=== PATIENT | female | born 1990 | race African-American/Black ===

== ENCOUNTER 2019-06-26 07:20 | Observation (INO) | payer OTHER ==
[2019-06-30 13:15] LABS: ANION GAP 15.4 (8-16); CARBON DIOXIDE 22.6 mmol/L (21-32)
[2019-06-30 13:16] LABS: ALBUMIN 2.4 g/dL (3.4-5.0); CREATININE 0.5 mg/dL (0.6-1.3); TOTAL BILIRUBIN 0.3 mg/dL (0.0-1.0)
[2019-07-04 20:14] LABS: HEMATOCRIT 32.2 % (36-48); HEMOGLOBIN 10.9 g/dL (12.0-16.0); MEAN CORPUSCULAR VOLUME 92.9 fL (80-94); RED BLOOD CELL COUNT(AUTO) 3.47 MIL/uL (4.20-5.40); WHITE BLOOD COUNT (AUTO) 10.9 K/uL (4.8-10.8)
[2019-07-04 20:15] LABS: BASOPHILS % (AUTO) 0.6 % (0.0-2.0); EOSINOPHILS # (AUTO) 0.2 K/uL (0-0.4); EOSINOPHILS % (AUTO) 2.2 % (0.0-4.0); LYMPHOCYTES # (AUTO) 1.5 K/uL (2.5-16.5); LYMPHOCYTES % (AUTO) 13.9 % (20.5-51.1); MEAN CORPUSCULAR HEMOGLOBIN 31 pg (27-31); MEAN CORPUSCULAR HGB CONC 34 g/dL (33-37); MONOCYTES # (AUTO) 0.7 K/uL (0.8-1.0); MONOCYTES % (AUTO) 6.1 % (1.7-9.3); NEUTROPHILS # (AUTO) 8.4 K/uL (1.8-7.7); NEUTROPHILS % (AUTO) 77.2 % (42.2-75.2); PLATELET COUNT (AUTO) 285 K/uL (140-450); RED CELL DISTRIBUTION WIDTH 13.2 % (11.6-13.7)
[2019-07-04 20:16] LABS: BASOPHILS # (AUTO) 0.1 K/uL (0.00-0.22)
== END 2019-06-26 11:15 | disposition home or self-care (01) ==
LOC: MLD 07:20
PROVIDERS: ADMIT Obstetrics & Gynecology; ATTEND Obstetrics & Gynecology
DX: O99.89 Other specified diseases and conditions complicating pregnancy, childbirth and the puerperium (principal); O99.52 Diseases of the respiratory system complicating childbirth; R05 Cough; R51 Headache; Z3A.28 28 weeks gestation of pregnancy
CPT/HCPCS: 36415; 80053; 85025; 87081; 87804; G0378

== ENCOUNTER 2019-08-01 14:14 | Inpatient (IN) | payer OTHER ==
[~2019-08-01] VITALS: Ht 175.3 cm; Wt 75.3 kg
[2019-08-01] MEDS ORDERED: PREN-380 PO (14:42)
[2019-08-01] MEDS ORDERED: LACTATED RINGERS 1,000 ML IV SCH (14:45)
[2019-08-01] MEDS ORDERED: INFLUENZA VACCINE QUAD 0.5 ML SYR IMVAC PRN (14:55)
[2019-08-01 14:58] VITALS: BP 115/81
[2019-08-01 15:40] LABS: BASOPHILS % (AUTO) 0.3 % (0.0-2.0); EOSINOPHILS % (AUTO) 0.6 % (0.0-4.0); HEMATOCRIT 33.2 % (36-48); LYMPHOCYTES # (AUTO) 1.6 K/uL (2.5-16.5); LYMPHOCYTES % (AUTO) 22.8 % (20.5-51.1); MEAN CORPUSCULAR HEMOGLOBIN 30 pg (27-31); MEAN CORPUSCULAR HGB CONC 33 g/dL (33-37); MEAN CORPUSCULAR VOLUME 91.1 fL (80-94); MONOCYTES # (AUTO) 0.5 K/uL (0.8-1.0); MONOCYTES % (AUTO) 6.5 % (1.7-9.3); NEUTROPHILS # (AUTO) 4.8 K/uL (1.8-7.7); NEUTROPHILS % (AUTO) 69.8 % (42.2-75.2); PLATELET COUNT (AUTO) 304 K/uL (140-450); RED BLOOD CELL COUNT(AUTO) 3.64 MIL/uL (4.20-5.40); RED CELL DISTRIBUTION WIDTH 13.9 % (11.6-13.7); WHITE BLOOD COUNT (AUTO) 6.9 K/uL (4.8-10.8)
[2019-08-01 16:12] LABS: ANION GAP 16.5 (8-16); CARBON DIOXIDE 21.1 mmol/L (21-32); CREATININE 0.7 mg/dL (0.6-1.3); POTASSIUM 3.6 mmol/L (3.5-5.1)
[2019-08-01 16:26] LABS: ALBUMIN 2.5 g/dL (3.4-5.0); TOTAL BILIRUBIN 0.5 mg/dL (0.0-1.0)
[2019-08-01 16:50] LABS: APPEARANCE,URINE SL CLOUDY (CLEAR); BILIRUBIN,URINE 2+ (NEGATIVE); BLOOD, URINE NEGATIVE (NEGATIVE); COLOR,URINE DARK YELLOW (YELLOW); LEUKOCYTE ESTERASE ,URINE TRACE (NEGATIVE); NITRITE, URINE NEGATIVE (NEGATIVE); UGLUCOSE NEGATIVE (NEGATIVE)
[2019-08-01 17:07] LABS: RBC,URINE 0-5 /HPF (0-5)
== END 2019-08-01 21:35 | disposition home or self-care (01) | DRG 566 ==
LOC: MLD 14:14 → OBSVTOIN 14:48
PROVIDERS: ADMIT Obstetrics & Gynecology; ATTEND Obstetrics & Gynecology
DX: O23.43 Unspecified infection of urinary tract in pregnancy, third trimester (principal); O60.03 Preterm labor without delivery, third trimester; Z3A.34 34 weeks gestation of pregnancy; Z91.018 Allergy to other foods
CPT/HCPCS: 36415; 80053; 81001; 85025; 87086; 87804; G0378; J7120

== ENCOUNTER 2019-08-25 05:19 | Inpatient (IN) | payer OTHER ==
[~2019-08-25] VITALS: Ht 175.3 cm; Wt 78.9 kg
[~2019-08-25 05:19] MED LIST: PREN-380 PO
[2019-08-25] MEDS ORDERED: AMPICILLIN 2,000 MG in NACL 0.9% MINI-BAG PLUS 100 ML IV SCH (05:45)
[2019-08-25] MEDS ORDERED: fentaNYL 0.05 MG/ML VIAL IVP ONE (05:50)
[2019-08-25] MEDS: LACTATED RINGERS 1,000 ML IV SCH ×2 (06:12→09:38)
[2019-08-25 06:30] LABS: BASOPHILS # (AUTO) 0.1 K/uL (0.00-0.22); BASOPHILS % (AUTO) 0.4 % (0.0-2.0); EOSINOPHILS % (AUTO) 0.2 % (0.0-4.0); HEMATOCRIT 34.4 % (36-48); HEMOGLOBIN 11.5 g/dL (12.0-16.0); LYMPHOCYTES # (AUTO) 1.5 K/uL (2.5-16.5); MEAN CORPUSCULAR HEMOGLOBIN 30 pg (27-31); MEAN CORPUSCULAR HGB CONC 33 g/dL (33-37); MEAN CORPUSCULAR VOLUME 90.5 fL (80-94); MONOCYTES # (AUTO) 0.4 K/uL (0.8-1.0); MONOCYTES % (AUTO) 2.5 % (1.7-9.3); NEUTROPHILS # (AUTO) 13.5 K/uL (1.8-7.7); NEUTROPHILS % (AUTO) 86.9 % (42.2-75.2); PLATELET COUNT (AUTO) 321 K/uL (140-450); RED CELL DISTRIBUTION WIDTH 14.3 % (11.6-13.7); WHITE BLOOD COUNT (AUTO) 15.5 K/uL (4.8-10.8)
[2019-08-25 07:04] LABS: APPEARANCE,URINE HAZY (CLEAR); BILIRUBIN,URINE NEGATIVE (NEGATIVE); BLOOD, URINE 3+ (NEGATIVE); COLOR,URINE YELLOW (YELLOW); LEUKOCYTE ESTERASE ,URINE NEGATIVE (NEGATIVE); NITRITE, URINE NEGATIVE (NEGATIVE); PH,URINE 6.5 (5.0-9.0); UGLUCOSE NEGATIVE (NEGATIVE)
[2019-08-25 07:12] LABS: BARBITURATE, URINE NEG. ng/ml (NEG <=200); BENZODIAZEPINE, URINE NEG. ng/mL (NEG <=200); CANNABINOID, URINE POS. ng/mL (NEG <=50); COCAINE, URINE NEG. ng/mL (NEG <=300); OPIATE, URINE NEG. ng/mL (NEG <=2000); PHENCYCLIDINE SCREEN,URINE NEG. ng/mL (NEG <=25)
[2019-08-25 07:24] LABS: HYALINE CASTS, URINE 0-10 /LPF (None Seen); WBC,URINE 0-5 /HPF (0-5)
--- NOTE | 2019-08-25 07:31 | NUR ---
PATIENT HAS BEEN SCREENED AND CATEGORIZED LOW NUTRITION RISK. PATIENT WILL BE SEEN WITHIN 7 DAYS OF ADMISSION. 08/31/[address]
[2019-08-25] MEDS ORDERED: ROPIVACAINE 0.2%/NS PREMIX 100 ML EPI SCH ×2 (08:20→09:20)
[2019-08-25] MEDS ORDERED: OXYTOCIN 20 UNITS in LACTATED RINGERS 1,000 ML IV SCH (08:20)
[2019-08-25] MEDS ORDERED: EPIDURAL KEYS MC ONE ×2 (08:22→10:20)
[2019-08-25] MEDS ORDERED: ROPIVACAINE 0.2%/NS PREMIX 100 ML EPI ONE (08:23)
[2019-08-25] MEDS ORDERED: OXYTOCIN 20 UNITS/LR PREMIX 1,000 ML IV ONE (08:24)
[2019-08-25 08:59] LABS: ALBUMIN 2.4 g/dL (3.4-5.0); ANION GAP 14.9 (8-16); CARBON DIOXIDE 20.7 mmol/L (21-32); CREATININE 0.6 mg/dL (0.6-1.3); POTASSIUM 3.6 mmol/L (3.5-5.1); TOTAL BILIRUBIN 0.3 mg/dL (0.0-1.0)
[2019-08-25] MEDS ORDERED: AMPICILLIN 1,000 MG in NACL 0.9% MINI-BAG PLUS 50 ML IV SCH (11:00)
[2019-08-25 14:27] LABS: PROTHROMBIN TIME 9.1 secs (10.8-13.4)
[2019-08-25] MEDS ORDERED: MEASLES, MUMPS, AND RUBELLA 1 VIAL SQVAC PRN (17:00)
[2019-08-25] MEDS ORDERED: IBUPROFEN 800 MG TAB PO PRN (17:00)
[2019-08-25] MEDS ORDERED: METHYLERGONOVINE 0.2 MG TAB PO PRN (17:00)
[2019-08-25] MEDS ORDERED: METHYLERGONOVINE 0.2 MG/ML AMP IM PRN (17:00)
[2019-08-25] MEDS ORDERED: BISACODYL 5 MG TABEC PO PRN (17:00)
[2019-08-25] MEDS ORDERED: BENZOCAINE/MENTHOL 20%-0.5% 60 GM CAN TP PRN (17:00)
[2019-08-25] MEDS ORDERED: OXYTOCIN 10 UNITS/ML VIAL IM PRN (17:00)
[2019-08-26 08:17] LABS: HEMATOCRIT 36.1 % (36-48)
[2019-08-26 08:18] LABS: BASOPHILS % (AUTO) 0.1 % (0.0-2.0); EOSINOPHILS # (AUTO) 0.1 K/uL (0-0.4); EOSINOPHILS % (AUTO) 0.4 % (0.0-4.0); HEMATOCRIT 36.1 % (36-48); LYMPHOCYTES # (AUTO) 2.5 K/uL (2.5-16.5); LYMPHOCYTES % (AUTO) 15.1 % (20.5-51.1); MEAN CORPUSCULAR HEMOGLOBIN 31 pg (27-31); MEAN CORPUSCULAR HGB CONC 33 g/dL (33-37); MEAN CORPUSCULAR VOLUME 92.2 fL (80-94); MONOCYTES # (AUTO) 0.9 K/uL (0.8-1.0); MONOCYTES % (AUTO) 5.2 % (1.7-9.3); NEUTROPHILS # (AUTO) 12.9 K/uL (1.8-7.7); NEUTROPHILS % (AUTO) 79.2 % (42.2-75.2); PLATELET COUNT (AUTO) 282 K/uL (140-450); RED BLOOD CELL COUNT(AUTO) 3.91 MIL/uL (4.20-5.40); RED CELL DISTRIBUTION WIDTH 14.7 % (11.6-13.7); WHITE BLOOD COUNT (AUTO) 16.4 K/uL (4.8-10.8)
[2019-08-26 08:38] LABS: ANION GAP 13.7 (8-16); CARBON DIOXIDE 26.1 mmol/L (21-32); CREATININE 0.8 mg/dL (0.6-1.3); POTASSIUM 3.8 mmol/L (3.5-5.1)
[2019-08-26] MEDS: IBUPROFEN 600 MG TAB PO PRN ×2 (12:31→18:20)
[2019-08-27] MEDS ORDERED: INFLUENZA VACCINE QUAD 0.5 ML SYR IMVAC PRN (01:15)
[2019-08-27] MEDS: IBUPROFEN 600 MG TAB PO PRN (01:31)
[2019-08-27 06:07] LABS: CHLAMYDIA TRACHOMATIS AMP DNA Negative (Negative)
[2019-08-27] MEDS ORDERED: DOCUSATE SODIUM 100 MG GELCAP PO PRN (07:00)
--- NOTE | 2019-08-27 15:35 | NUR ---
Neurology Tech Note: Per MIHIR Chua, patient had a positive drug screen but baby's drug screen was negative. MIHIR Chua stated per Neurology Tech from [facility], [facility] could take baby home upon discharge.
== END 2019-08-27 14:50 | disposition home or self-care (01) | DRG 560 ==
LOC: MLD 05:19 → INTOOBSV 05:19 → OBSVTOIN 05:19 → MLD 20:15 → MFCC 20:15
PROVIDERS: ADMIT Obstetrics & Gynecology; ATTEND Obstetrics & Gynecology
PROC: 10E0XZZ Delivery of Products of Conception, External Approach (ICD-10-PCS; principal; 2019-08-25)
PROC: 3E0R3BZ Introduction of Anesthetic Agent into Spinal Canal, Percutaneous Approach (ICD-10-PCS; 2019-08-25)
PROC: 00HU33Z Insertion of Infusion Device into Spinal Canal, Percutaneous Approach (ICD-10-PCS; 2019-08-25)
PROC: 3E0234Z Introduction of Serum, Toxoid and Vaccine into Muscle, Percutaneous Approach (ICD-10-PCS; 2019-08-25)
PROC: 3E0134Z Introduction of Serum, Toxoid and Vaccine into Subcutaneous Tissue, Percutaneous Approach (ICD-10-PCS; 2019-08-25)
PROC: 3E02340 Introduction of Influenza Vaccine into Muscle, Percutaneous Approach (ICD-10-PCS; 2019-08-27)
DX: O99.12 Other diseases of the blood and blood-forming organs and certain disorders involving the immune mechanism complicating childbirth (principal); E87.1 Hypo-osmolality and hyponatremia; O99.284 Endocrine, nutritional and metabolic diseases complicating childbirth; D72.829 Elevated white blood cell count, unspecified; Z3A.37 37 weeks gestation of pregnancy; Z23 Encounter for immunization; Z37.0 Single live birth
CPT/HCPCS: 36415; 51702; 59409; 80048; 80053; 80305; 81001; 84550; 85018; 85025; 85384; 85610; 85730; 86592; 86886; 86900; 86901; 87491; 90715; J2590; J2795; J3010; J7120

== ENCOUNTER 2020-01-30 06:04 | Emergency (ER) | payer OTHER ==
[~2020-01-30] VITALS: Ht 175.3 cm; Wt 68.0 kg
[2020-01-30 06:17] VITALS: BP 132/70
--- NOTE | 2020-01-30 06:22 | NUR ---
AMBULATED TO ER BED 4
--- NOTE | 2020-01-30 06:24 | NUR ---
PT WALK IN TO BED 4, PT CARE TO [facility]
[2020-01-30] MEDS ORDERED: KETOROLAC 60 MG/2 ML VIAL IM ONE (06:30)
--- NOTE | 2020-01-30 06:38 | NUR ---
29 Y/O FEMALE PRESENTED TO ED C/O LOWER BACK PAIN X 5 DAYS. PT STATES SHE WENT TO HER PCP AND THEY TOLD HER TO TAKE OTC MEDICATION AND HAS NO RELIEF. PT DENIES N/V/D/FEVER. PT DENIES DYSURIA. PT DENIES TRAUMA. PT BREATHING EVEN AND UNLABORED. A/O X4. PT RESTING IN BED , LOCKED AND IN LOWEST POSITION, HOB ELEVATED, SIDE RAIL X1. PMH: DENIES AX: ORANGES, STRAWBERRIES
[2020-01-30 06:55] VITALS: BP 132/70
--- NOTE | 2020-01-30 06:55 | NUR ---
Patient discharged with v/s stable. Written and verbal after care instructions given and explained. Patient alert, oriented and verbalized understanding of instructions. Ambulatory with steady gait. All questions addressed prior to discharge. ID band removed. Patient advised to follow up with PMD. Rx of MOTRIN , ROBAXIN AND TRAMADOL given. Patient educated on indication of medication including possible reaction and side effects. Opportunity to ask questions provided and answered.
== END 2020-01-30 06:55 | disposition home or self-care (01) ==
LOC: MED 06:04
DX: S39.012A Strain of muscle, fascia and tendon of lower back, initial encounter (principal); R03.0 Elevated blood-pressure reading, without diagnosis of hypertension; Z91.02 Food additives allergy status; X58.XXXA Exposure to other specified factors, initial encounter; Y93.89 Activity, other specified; Y92.89 Other specified places as the place of occurrence of the external cause; Y99.8 Other external cause status
CPT/HCPCS: 81025; 93005; 96372; 99283; J1885

== ENCOUNTER 2020-12-16 11:25 | Emergency (ER) | payer OTHER ==
[~2020-12-16] VITALS: Ht 175.3 cm; Wt 77.6 kg
[2020-12-16 11:27] VITALS: BP 124/76
--- NOTE | 2020-12-16 12:00 | NUR ---
30/F presents to ED with c/o lower back x3 days. Patient states pain started 3 days ago, denies injury or trauma. Patient describes it as a constant 8/10 sharp pain that worsens with walking or movement. Patient saw her primary doctor and was advised to take OTC pain medication, states she has been taking Tylenol at home with no relief. Movement and walking is slowed due to pain, patient able to ambulate without assistance.
[2020-12-16] MEDS: CYCLOBENZAPRINE 10 MG TAB PO ONE (12:01)
[2020-12-16] MEDS: KETOROLAC 15 MG/ML VIAL IM ONE (12:01)
[2020-12-16] MEDS: LIDOCAINE 5% 1 EA PATCH TP SCH (12:10)
[2020-12-16] MEDS ORDERED: LID5T TP (12:49)
[2020-12-16] MEDS ORDERED: CYCL-711 PO (12:49)
[2020-12-16] MEDS ORDERED: IBUP-2213 PO (12:49)
--- NOTE | 2020-12-16 13:00 | NUR ---
Patient discharged with v/s stable. Written and verbal after care instructions given and explained. Patient alert, oriented and verbalized understanding of instructions. Ambulatory with steady gait. All questions addressed prior to discharge. ID band removed. Patient advised to follow up with PMD. Rx of Flexeril, Ibuprofen and Lidoderm patch given. Patient educated on indication of medication including possible reaction and side effects. Opportunity to ask questions provided and answered.
[2020-12-16 13:04] VITALS: BP 124/76
== END 2020-12-16 13:00 | disposition home or self-care (01) ==
LOC: MED 11:25
DX: S39.012A Strain of muscle, fascia and tendon of lower back, initial encounter (principal); W11.XXXA Fall on and from ladder, initial encounter; Y93.89 Activity, other specified; Y92.89 Other specified places as the place of occurrence of the external cause; Y99.8 Other external cause status
CPT/HCPCS: 81025; 96372; 99283; J1885

== ENCOUNTER 2021-06-22 12:19 | Emergency (ER) | payer OTHER ==
[~2021-06-22] VITALS: Ht 175.3 cm; Wt 72.6 kg
[~2021-06-22 12:19] MED LIST changes: +CYCL-711 PO; +IBUP-2213 PO; +LID5T TP
[2021-06-22 12:30] VITALS: BP 124/80
--- NOTE | 2021-06-22 12:52 | NUR ---
CHRISTOPHER AND FLU SWABS COLLECTED AND SEN TO LAB
[2021-06-22] MEDS ORDERED: IBUP-1842 PO (14:16)
[2021-06-22] MEDS ORDERED: ALBU0.0912 IH (14:16)
[2021-06-22] MEDS ORDERED: ONDA-188 SL (14:16)
[2021-06-22 14:30] VITALS: BP 124/80
--- NOTE | 2021-06-22 14:30 | NUR ---
Patient discharged with v/s stable. Written and verbal after care instructions given and explained. Patient alert, oriented and verbalized understanding of instructions. Ambulatory with steady gait. All questions addressed prior to discharge. ID band removed. Patient advised to follow up with PMD. Rx of motrin, albuterol, zofran given. Patient educated on indication of medication including possible reaction and side effects. Opportunity to ask questions provided and answered.
== END 2021-06-22 14:30 | disposition home or self-care (01) ==
LOC: MED 12:19
DX: J06.9 Acute upper respiratory infection, unspecified (principal); Z20.822 Contact with and (suspected) exposure to COVID-19; Z91.018 Allergy to other foods
CPT/HCPCS: 71045; 87804; 99284

== ENCOUNTER 2022-01-15 02:11 | Emergency (ER) | payer OTHER ==
[~2022-01-15] VITALS: Ht 175.3 cm; Wt 64.4 kg
[~2022-01-15 02:11] MED LIST changes: +ALBU0.0912 IH; +IBUP-1842 PO; +ONDA-188 SL
[2022-01-15 02:14] VITALS: BP 111/83
--- NOTE | 2022-01-15 02:15 | NUR ---
Dr. Blunt examining patient.
[2022-01-15] MEDS ORDERED: AMOXIL/CLAVULANATE 875/125 MG 1 TAB PO ONE (02:20)
[2022-01-15] MEDS ORDERED: AMOX-1230 PO (02:21)
--- NOTE | 2022-01-15 02:21 | NUR ---
Throat Culture and Strep swabs collected and sent to lab.
[2022-01-15 02:30] VITALS: BP 111/83
--- NOTE | 2022-01-15 02:30 | NUR ---
Patient discharged with v/s stable. Written and verbal after care instructions given and explained for Strep throat. Patient alert, oriented and verbalized understanding of instructions. Ambulatory with steady gait. All questions addressed prior to discharge. ID band removed. Patient advised to follow up with PMD. Rx of Augmentin given. Patient educated on indication of medication including possible reaction and side effects. Opportunity to ask questions provided and answered.
== END 2022-01-15 02:30 | disposition home or self-care (01) ==
LOC: MED 02:11
DX: J02.9 Acute pharyngitis, unspecified (principal); Z79.2 Long term (current) use of antibiotics; Z79.1 Long term (current) use of non-steroidal anti-inflammatories (NSAID); Z79.899 Other long term (current) drug therapy; Z91.018 Allergy to other foods
CPT/HCPCS: 87081; 99283

== ENCOUNTER 2022-04-19 18:46 | Emergency (ER) | payer OTHER ==
[~2022-04-19] VITALS: Ht 175.3 cm; Wt 65.8 kg
[~2022-04-19 18:46] MED LIST changes: +AMOX-1230 PO
[2022-04-19 19:25] VITALS: BP 109/72
[2022-04-19] MEDS ORDERED: IBUPROFEN 600 MG TAB ONE (19:29)
[2022-04-19] MEDS ORDERED: IBUPROFEN 600 MG TAB PO ONE (19:30)
[2022-04-19] MEDS ORDERED: KETOROLAC 30 MG/ML VIAL IM ONE (23:35)
[2022-04-19] MEDS ORDERED: ACET-1182 PO (23:58)
[2022-04-19] MEDS ORDERED: GABA300C PO (23:58)
[2022-04-19] MEDS ORDERED: DICL100G5 TP (23:58)
[2022-04-19] MEDS ORDERED: NAPR-1871 PO (23:58)
[2022-04-20 00:06] VITALS: BP 118/82
== END 2022-04-20 00:08 | disposition home or self-care (01) ==
LOC: MED 18:46
DX: S83.91XA Sprain of unspecified site of right knee, initial encounter (principal); Z91.018 Allergy to other foods; Z88.8 Allergy status to other drugs, medicaments and biological substances; Z79.899 Other long term (current) drug therapy; X58.XXXA Exposure to other specified factors, initial encounter; Y93.89 Activity, other specified; Y92.89 Other specified places as the place of occurrence of the external cause; Y99.8 Other external cause status
CPT/HCPCS: 29515; 73562; 81025; 96372; 99283; J1885

== ENCOUNTER 2023-02-05 09:33 | Emergency (ER) | payer OTHER ==
[~2023-02-05] VITALS: Ht 175.3 cm; Wt 68.5 kg
[~2023-02-05 09:33] MED LIST changes: +ACET-1182 PO; +DICL100G5 TP; +GABA300C PO; +NAPR-1871 PO
[2023-02-05 09:38] VITALS: BP 122/73; PULSE 79; RESP 22; TEMP 98; O2SAT 100
--- NOTE | 2023-02-05 09:47 | NUR ---
Patient ambulated to bed 2.
[2023-02-05] MEDS ORDERED: KETOROLAC 60 MG/2 ML VIAL IM ONE (09:55)
--- NOTE | 2023-02-05 10:06 | NUR ---
CALL LIGHT AT BS WITH IN REACH.
--- NOTE | 2023-02-05 10:10 | NUR ---
32 y/o female bib self with c/o epigastric pain x 4 days. Patient also reports nausea, vomiting and diarrhea. Denies taking any medication for symptoms. Denies any sick contacts or new foods. Denies any fevers or chills. Patient was seen at Urgent [facility] yesterday. Medical History: Denies NKDA
--- NOTE | 2023-02-05 12:02 | NUR ---
Dr. Maciel evaluating patient at bedside
[2023-02-05] MEDS ORDERED: ONDANSETRON 4 MG ODT PO ONE (12:10)
[2023-02-05] MEDS ORDERED: IBUP-2213 PO (12:25)
[2023-02-05] MEDS ORDERED: CIPR500T4 PO (12:25)
[2023-02-05] MEDS ORDERED: ONDA8TAB87 PO (12:25)
[2023-02-05] MEDS ORDERED: ACET-8905 PO (12:25)
[2023-02-05 13:05] VITALS: BP 111/70; PULSE 88; RESP 20; TEMP 98.6; O2SAT 96
--- NOTE | 2023-02-05 13:05 | NUR ---
Patient discharged with v/s stable. Written and verbal after care instructions given and explained. Patient alert, oriented and verbalized understanding of instructions. Ambulatory with steady gait. All questions addressed prior to discharge. ID band removed. Patient advised to follow up with PMD. Rx of HYDROCODON, CIPRO, MOTRIN, ZOFRAN given. Patient educated on indication of medication including possible reaction and side effects. Opportunity to ask questions provided and answered. Pt to f/u with PMD in 2-3 days. Instructed pt to return if condition worsens.
== END 2023-02-05 13:05 | disposition home or self-care (01) ==
LOC: MED 09:33
DX: R10.13 Epigastric pain (principal); R11.2 Nausea with vomiting, unspecified; R19.7 Diarrhea, unspecified; F12.90 Cannabis use, unspecified, uncomplicated; Z91.018 Allergy to other foods; Z79.899 Other long term (current) drug therapy
CPT/HCPCS: 81002; 81025; 96372; 99283; J1885; Q0162